=== PATIENT | female | born 1955 | race American Indian/Alaskan Native ===

== ENCOUNTER 2017-04-16 10:19 | Day surgery (SDC) | payer MEDICAID ==
[2017-03-28 10:32] VITALS: BMI 26.7
[2017-04-16 11:21] VITALS: O2SAT 100
[2017-04-16] MEDS ORDERED: Propofol 10 mg/ml Inj (20 ML) ONE (12:29)
[2017-04-16] MEDS ORDERED: Lidocaine 2% Inj (20ml) ONE (12:29)
[2017-04-16 13:13] VITALS: RESP 16
[2017-04-16] MEDS ORDERED: Sodium Chloride 0.9% 1,000 ML IV SCH (13:15)
[2017-04-16 14:03] VITALS: BP 110/83; PULSE 78; TEMP 97.8
== END 2017-04-16 14:36 | disposition home or self-care (01) ==
LOC: ENDO 10:19
PROVIDERS: ATTEND Internal Medicine Gastroenterology
DX: Z12.11 Encounter for screening for malignant neoplasm of colon (principal); K57.30 Diverticulosis of large intestine without perforation or abscess without bleeding; K64.8 Other hemorrhoids
CPT/HCPCS: 45378; J2704; J7040